=== PATIENT | female | born 2000 | race African-American/Black ===

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

== ENCOUNTER 2021-01-11 20:16 | Emergency (ER) | payer OTHER ==
[~2021-01-11] VITALS: Ht 154.9 cm; Wt 59.0 kg
[~2021-01-11 20:16] MED LIST: PHENERGAN 25 MG25 M1 PO
[2021-01-11 21:16] VITALS: BP 116/79
[2021-01-11] MEDS ORDERED: EPIPEN 2-P0.3 MG/0.3 IM (21:45)
[2021-01-11] MEDS ORDERED: MEDROL DOSPAK21 TA1 PO (21:45)
== END 2021-01-11 21:58 | disposition home or self-care (01) ==
LOC: ER 20:16
DX: T78.40XA Allergy, unspecified, initial encounter (principal); Y92.89 Other specified places as the place of occurrence of the external cause

== ENCOUNTER 2021-02-08 01:23 | Emergency (ER) | payer OTHER ==
[~2021-02-08] VITALS: Ht 154.9 cm; Wt 63.5 kg
[~2021-02-08 01:23] MED LIST changes: +EPIPEN 2-P0.3 MG/0.3 IM; +MEDROL DOSPAK21 TA1 PO
[2021-02-08] MEDS ORDERED: CHILDREN'S ZYRT10 M1 PO (01:41)
[2021-02-08 02:20] VITALS: BP 107/69
== END 2021-02-08 02:21 | disposition home or self-care (01) ==
LOC: ER 01:23
DX: J06.9 Acute upper respiratory infection, unspecified (principal); B97.89 Other viral agents as the cause of diseases classified elsewhere; Z79.899 Other long term (current) drug therapy; Z88.8 Allergy status to other drugs, medicaments and biological substances

== ENCOUNTER 2021-06-06 13:31 | Emergency (ER) | payer OTHER ==
[~2021-06-06] VITALS: Ht 162.6 cm; Wt 51.7 kg
[~2021-06-06 13:31] MED LIST changes: +CHILDREN'S ZYRT10 M1 PO
[2021-06-06 14:01] LABS: ABSOLUTE NEUTROPHILS 3.3 thou/uL (1.4-8.2); BASOPHILS 0.4 % (0.0-2.0); EOSINOPHILS 0.4 % (0.0-3.0); HEMATOCRIT 35.3 % (37.0-47.0); HEMOGLOBIN 11.3 gm/dL (12.0-15.0); LYMPHOCYTES 36.3 % (24.0-44.0); MCH 23.9 pg (26.0-34.0); MCHC 31.9 g/dL (28.0-37.0); MCV 75.1 fL (80.0-100.0); MONOCYTES 4.9 % (1.0-8.0); PLATELET COUNT 271 thou/uL (150-400); RBC 4.71 mil/uL (4.20-5.00); RDW 14.5 % (10.5-14.5); WBC 5.6 thou/uL (4.0-11.0)
[2021-06-06 14:09] LABS: CALCIUM 9.8 mg/dL (8.5-10.1); CREATININE 0.8 mg/dL (0.6-1.0); POTASSIUM 3.8 mmol/L (3.5-5.1)
[2021-06-06 14:13] LABS: URINE BILIRUBIN NEGATIVE (Negative); URINE BLOOD NEGATIVE (Negative); URINE CLARITY CLEAR; URINE COLOR YELLOW; URINE GLUCOSE-RANDOM* NEGATIVE (Negative); URINE KETONES 3+ (Negative); URINE LEUKOCYTES-REFLEX NEGATIVE (Negative); URINE NITRITE-REFLEX NEGATIVE (Negative); URINE PROTEIN (DIPSTICK) NEGATIVE (Negative); URINE SPECIFIC GRAVITY >= 1.030 (1.005-1.035); URINE UROBILINOGEN 0.2 E.U./dl (0.2-1.0)
[2021-06-06 14:15] LABS: ALBUMIN 4.4 g/dL (3.4-5.0); TOTAL BILIRUBIN 0.6 mg/dL (0.2-1.0)
[2021-06-06] MEDS ORDERED: VITAMIN B-625 MG PO (15:57)
[2021-06-06] MEDS ORDERED: UNISOM25 MG PO (15:57)
[2021-06-06 16:13] VITALS: BP 104/70
== END 2021-06-06 16:13 | disposition home or self-care (01) ==
LOC: ER 13:31
PROVIDERS: Physician Assistant; Student in an Organized Health Care Education/Training Program
DX: O21.9 Vomiting of pregnancy, unspecified (principal); Z3A.08 8 weeks gestation of pregnancy; Z91.09 Other allergy status, other than to drugs and biological substances; Z20.822 Contact with and (suspected) exposure to COVID-19

== ENCOUNTER 2021-11-22 21:26 | Emergency (ER) | payer OTHER ==
[~2021-11-22] VITALS: Ht 165.1 cm; Wt 63.5 kg
[~2021-11-22 21:26] MED LIST changes: +UNISOM25 MG PO; +VITAMIN B-625 MG PO
[2021-11-22 22:15] LABS: HEMATOCRIT 24.3 % (37.0-47.0); HEMOGLOBIN 7.7 gm/dL (12.0-15.0); MCH 23.4 pg (26.0-34.0); MCHC 31.6 g/dL (28.0-37.0); MCV 74.1 fL (80.0-100.0); RBC 3.28 mil/uL (4.20-5.00); RDW 13.3 % (10.5-14.5); WBC 4.6 thou/uL (4.0-11.0)
[2021-11-22 22:21] LABS: URINE BILIRUBIN NEGATIVE (Negative); URINE BLOOD NEGATIVE (Negative); URINE CLARITY SL CLOUDY; URINE COLOR YELLOW; URINE GLUCOSE-RANDOM* NEGATIVE (Negative); URINE KETONES NEGATIVE (Negative); URINE NITRITE-REFLEX NEGATIVE (Negative); URINE PROTEIN (DIPSTICK) TRACE (Negative); URINE SPECIFIC GRAVITY 1.015 (1.005-1.035)
[2021-11-22 22:24] LABS: CALCIUM 8.2 mg/dL (8.5-10.1); CREATININE 0.9 mg/dL (0.6-1.0); POTASSIUM 3.8 mmol/L (3.5-5.1)
[2021-11-22 22:30] LABS: ALBUMIN 2.4 g/dL (3.4-5.0); TOTAL BILIRUBIN 0.8 mg/dL (0.2-1.0); TOTAL PROTEIN 5.6 g/dL (6.4-8.2)
[2021-11-22 22:43] LABS: URINE LEUKOCYTES-REFLEX 1+ (Negative)
[2021-11-22 22:44] LABS: SQUAMOUS 4-10 Moderate /LPF (0-3)
[2021-11-22 22:45] LABS: CASTS None Seen /LPF (None Seen); URINE WBC-REFLEX 6-15 Few /HPF (0-5)
[2021-11-22 22:46] LABS: CRYSTALS None Seen /LPF (None Seen); URINE RBC 1-2 Rare /HPF (NONE SEEN)
[2021-11-22] MEDS ORDERED: PNV 29-1 TABLE1 EACH PO (23:01)
[2021-11-22] MEDS ORDERED: LORATIDINE 10 M10 M1 PO (23:02)
[2021-11-22 23:24] VITALS: BP 94/48
--- NOTE | 2021-11-23 08:44 | EKG ---
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
--- NOTE | 2021-11-23 08:45 | EKG ---
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 Requested By: Rex Goldstein Order Number: [id number] MD: Martín Devi Measurements Intervals [place] Rate: 119 P: 47 SC: 120 QRS: 52 QRSD: 72 T: -3 QT: 306 QTc: 431 Interpretive Statements Sinus tachycardia Ventricular premature complex Repol abnrm suggests ischemia, diffuse leads Baseline wander in lead(s) I,III,aVL,aVF,V2,V3,V4,V5,V6 Compared to ECG 11/22/2021 22:02:01 Ventricular premature complex(es) now present Early repolarization now present Possible ischemia now present Sinus rhythm no longer present Atrial premature complex(es) no longer present First degree AV block no longer present Electronically Signed On 11-23-2021 8:44:50 [employer]OSET [employer]ER by Martín Devi [email or web address] <ELECTRONICALLY SIGNED> By: Martín Devi MD, [facility] 11/23/21 0844 37 37 Martín Devi MD, [facility] /EPI
== END 2021-11-22 23:38 | disposition short-term general hospital (02) ==
LOC: ER 21:26
PROVIDERS: Student in an Organized Health Care Education/Training Program
DX: O98.513 Other viral diseases complicating pregnancy, third trimester (principal); U07.1 COVID-19; Z3A.30 30 weeks gestation of pregnancy; Z79.899 Other long term (current) drug therapy; Z88.8 Allergy status to other drugs, medicaments and biological substances